=== PATIENT | female | born 1965 | race Caucasian/White ===

== ENCOUNTER 2020-10-01 09:05 | Emergency (ER) | payer OTHER ==
[2020-10-01 09:48] LABS: RED BLOOD COUNT 5.41 M/UL (4.00-5.10); WHITE BLOOD COUNT 13.4 K/UL (4.5-11.0)
[2020-10-01 10:25] LABS: BUN/CREATININE RATIO 4 (0-10)
[2020-10-01] MEDS ORDERED: CEFUROXIME500 MG PO (11:35)
[2020-10-01] MEDS ORDERED: PHENERGAN 25 MG25 M1 PO (11:35)
== END 2020-10-01 11:44 | disposition home or self-care (01) ==
LOC: ER1 09:05
DX: K43.9 Ventral hernia without obstruction or gangrene (principal); N39.0 Urinary tract infection, site not specified; J44.9 Chronic obstructive pulmonary disease, unspecified; K21.9 Gastro-esophageal reflux disease without esophagitis; I10 Essential (primary) hypertension; F17.210 Nicotine dependence, cigarettes, uncomplicated; Z90.49 Acquired absence of other specified parts of digestive tract; Z90.710 Acquired absence of both cervix and uterus; Z91.013 Allergy to seafood
CPT/HCPCS: 80053; 81001; 83690; 85025; 87086; 99284; Q9967